=== PATIENT | female | born 1955 | race Two or more races ===

== ENCOUNTER 2021-10-21 09:59 | Emergency (ER) | payer OTHER ==
[~2021-10-21] VITALS: Ht 165.1 cm; Wt 76.2 kg
[2021-10-21] MEDS ORDERED: STIOLTO RESPIMAT4 GM IH (10:19)
[2021-10-21] MEDS ORDERED: ARNUITY ELLIP200 MCG IH (10:20)
[2021-10-21] MEDS ORDERED: CLARINEX-D 121 EACH PO (10:20)
[2021-10-21] MEDS ORDERED: OFEV100 MG PO (10:20)
[2021-10-21] MEDS ORDERED: DIALYVITE 800-1 EACH PO (10:21)
[2021-10-21] MEDS ORDERED: SYNTHROID75 MCG PO (10:21)
[2021-10-21] MEDS ORDERED: RAYOS5 MG PO (10:22)
[2021-10-21] MEDS ORDERED: TREXALL5 MG (10:22)
[2021-10-21] MEDS ORDERED: VERELAN120 MG (10:23)
[2021-10-21] MEDS ORDERED: KAPSPARGO SPRIN25 MG (10:23)
== END 2021-10-21 13:50 | disposition home or self-care (01) ==
LOC: ER 09:59
DX: J45.998 Other asthma (principal); Z20.822 Contact with and (suspected) exposure to COVID-19; E03.9 Hypothyroidism, unspecified

== ENCOUNTER 2022-06-03 14:14 | Outpatient (CLI) | payer OTHER ==
[~2022-06-03 14:14] MED LIST: ARNUITY ELLIP200 MCG IH; CLARINEX-D 121 EACH PO; DIALYVITE 800-1 EACH PO; KAPSPARGO SPRIN25 MG; OFEV100 MG PO; RAYOS5 MG PO; STIOLTO RESPIMAT4 GM IH; SYNTHROID75 MCG PO; TREXALL5 MG; VERELAN120 MG
== END 2022-06-03 14:44 | disposition home or self-care (01) ==
LOC: PPH VACUNA 14:14
PROVIDERS: ATTEND Emergency Medicine Pediatric Emergency Medicine
DX: Z23 Encounter for immunization (principal)